=== PATIENT | male | born 1940 | race Caucasian/White ===

== ENCOUNTER 2022-04-15 14:58 | Outpatient (CLI) | payer MEDICARE, BC | END 2022-04-15 14:59 | disposition critical access hospital (66) | LOC: EMS 14:58 | DX: R41.0 Disorientation, unspecified (principal); M79.622 Pain in left upper arm; I48.91 Unspecified atrial fibrillation | CPT/HCPCS: A0425; A0427 ==

== ENCOUNTER 2022-04-15 15:29 | Emergency (ER) | payer MEDICARE, BC ==
[2022-04-15] MEDS ORDERED: diltiaZEM 30 MG TABLET PO STA ×2 (16:16→18:00)
--- NOTE | 2022-04-15 16:17 | ED Physician Documentation ---
PD HPI ALTERED MENTAL STATUS - Stated complaint Stated Complaint: AMS - Chief complaint Chief Complaint: Neuro - History obtained from History obtained from: Patient, Family ( gives independent information separate from the patient - she noted him to have confusion and unable to remember recent events of today/yesterday. He was having pain left shoulder, worse with movement. She had not heard him fall or such.), EMS (EMS noted the patient to have a rapid heart rate with apparent atrial fibrillation with heart rate approximately 170s. He did appear pale. There oximetry read 78% with poor tracing however. He was conversant but seemed confused and poor memory of recent events.) - History of Present Illness Timing - onset: Today Timing - duration: Hours (The patient states he is usually typically very active and vigorous. He swims a mile 3 times a week. Does usual activity around the house. He states he does not remember events from this afternoon. He denies any focal weakness. He has pain in the left shoulder and is not aware of injury.) Timing - details: Abrupt onset ( The patient is not aware of exactly when his symptoms started. He was off doing activities on his own at home. His noted that he seemed confused and pale. He did not have memory of the events from earlier today. Last normal approximately 2:00. Having pain in the left shoulder.) Quality / character: Disoriented (The patient was actually able to state his name and where he was. He was not sure of the time of day. He cannot remember events from earlier in the day or what he had been doing. His states he was able to make complete sentences and his articulation was clear. No focal weakness noted.) Associated symptoms: Other (He is having pain in the left shoulder with motion so therefore is guarding motion of the left shoulder. He has normal motion and strength in the forearm and wrist.). No: Fever, Headache, Stiff neck, Focal weakness Contributing factors: No: Anticoagulated, Diabetic, Recent med change, Recent illness, Known dementia Basline status: Alert and oriented X 3, Ambulatory (He and his state he is typically vigorous and active. He works out with swimming a mile 3 times a week. Normal household activities.) Similar symptoms before: Has not had sx before PD PAST MEDICAL HISTORY - Past Surgical History Past Surgical History: No - Present Medications Home Medications: Ambulatory Orders Medication Instructions Recorded Confirmed Atorvastatin [Lipitor] 20 mg PO QPM 04/15/22 04/15/22 Levothyroxine Sodium 200 mcg PO DAILY PM 04/15/22 04/15/22 [Levothyroxine] - Allergies Allergies/Adverse Reactions: Allergies Allergy/AdvReac Type Severity Reaction Status Date / Time No Known Drug Allergies Allergy Verified 10/05/13 18:37 - Social History Does the pt smoke?: No Smoking Status: Never smoker Does the pt drink ETOH?: Yes Does the pt have substance abuse?: No - Immunizations Immunizations are current?: No Immunizations: TDAP >10years/unknown PD ED PE NORMAL - Vitals Vital signs reviewed: Yes - General General: Alert and oriented X 3, Well developed/nourished, Other (He does seem appropriately concerned that he cannot remember events from earlier in the day. Remote memory is good. He denies headache. He is alert and conversant. Pupils are slightly constricted bilaterally.) - HEENT HEENT: Atraumatic - Neck Neck: Supple, no meningeal sign, No bony TTP, No adenopathy - Cardiac Cardiac: No: RRR (Irregular rhythm with a controlled rate between 95 and 100. No murmur.) - Respiratory Respiratory: No respiratory distress, Clear bilaterally, Other (Mild chest wall tenderness in the left lower costal margin without any crepitance or deformity. Lungs are clear to auscultation.) - Abdomen Abdomen: Normal bowel sounds, Soft, Non tender - Back Back: No CVA TTP, No spinal TTP - Derm Derm: Normal color, Warm and dry - Extremities Extremities: Other (He has tenderness in the left anterolateral shoulder and pain with active range of motion so guarding motion. Passive range of motion actually is minimally painful. No obvious dislocation. The elbow and wrist are nontender. Strong activity aid in the hand. Good elbow motion for flexion extension.) - Neuro Neuro: Alert and oriented X 3, search engine optimization analyst 2-12 intact, No motor deficit, No sensory deficit, Normal speech, Other (The patient has poor memory of events from earlier today and this morning. He can remember from yesterday and earlier in the week. Sentence structure is good and articulation is normal.) Eye Opening: Spontaneous Motor: Obeys Commands Verbal: Oriented GCS Score: 15 NIHSS - Level of Consciousness Level of consciousness: (0) Alert, Keenly responsive LOC Questions: (0) Answers both Q's correct LOC Commands: (0) Performs both correctly - Gaze Best Gaze: (0) Normal - Visual Visual: (0) No loss - Facial Palsy Facial Palsy: (0) Normal, symmetrical movement - Motor Arms (both separate) Motor Arm (right): (0) No drift Motor Arm (left): (0) No drift - Motor Legs (both separate) Motor Leg (right): (0) No drift Motor Leg (left): (0) No drift - Limb Ataxia Limb Ataxia: (0) Absent - Sensory Sensory: (0) Normal - Best Language Best Language: (0) No aphasia - Dysarthria Dysarthria: (0) Normal - Extinction and Inattention (formally neg Extinction and inattention: (0) No abnormality - Total Score/Results Total Score/Result: 0 Results - Vitals Vitals: Vital Signs - 24 hr 04/15/22 04/15/22 15:37 17:23 Temperature 37.0 C Heart Rate 97 98 Respiratory 14 24 Rate Blood Pressure 163/96 H 153/90 H O2 Saturation 92 100 Oxygen O2 Source Room air - EKG (time done) 16:19 Rate: Rate (enter#) (90) Rhythm: Atrial fibrillation [place]: Normal QRS: Normal Ischemia: Normal ST segments. No: ST elevation c/w ischemia, ST depression - Labs Labs: Laboratory Tests 04/15/22 04/15/22 04/15/22 16:19 16:19 16:19 WBC 12.9 H RBC 4.59 L Hgb 13.0 L Hct 41.2 L MCV 89.8 MCH 28.3 MCHC 31.6 L RDW 13.3 Plt Count 175 MPV 9.4 Neut # (Auto) 11.2 H Lymph # (Auto) 0.9 L [place] # (Auto) 0.7 Eos # (Auto) 0.0 Baso # (Auto) 0.0 Absolute Nucleated RBC 0.00 Nucleated RBC % 0.0 ESR 6 Sodium 137 Potassium 3.7 Chloride 105 Carbon Dioxide 22 Anion Gap 10.0 BUN 14 Creatinine 0.9 Estimated GFR (MDRD) 81 L Glucose 115 H Calcium 8.8 Magnesium 2.3 Total Bilirubin 1.0 AST 26 ALT 29 Alkaline Phosphatase 74 Troponin I High Sens B-Natriuretic Peptide Total Protein 7.0 Albumin 3.9 Globulin 3.1 Albumin/Globulin Ratio 1.3 Lipase 42 TSH 02/05/23 02/05/23 02/05/23 16:19 16:19 16:19 WBC RBC Hgb Hct MCV MCH MCHC RDW Plt Count MPV Neut # (Auto) Lymph # (Auto) [place] # (Auto) Eos # (Auto) Baso # (Auto) Absolute Nucleated RBC Nucleated RBC % ESR Sodium Potassium Chloride Carbon Dioxide Anion Gap BUN Creatinine Estimated GFR (MDRD) Glucose Calcium Magnesium Total Bilirubin AST ALT Alkaline Phosphatase Troponin I High Sens 29.7 H* B-Natriuretic Peptide 40 Total Protein Albumin Globulin Albumin/Globulin Ratio Lipase TSH 0.53 - Rads (name of study) shoulder xray Radiology: Prelim report reviewed, EMP read indepedently (no fractures nor dislocations), See rad report chest xray Radiology: Prelim report reviewed, EMP read indepedently (no acute process nor noted rib fractures. ), See rad report angio head/neck Radiology: Prelim report reviewed (No LVO, no bleed, mass, nor acute findings. ), See rad report PD Medical Decision Making - ED course Complexity details: considered differential (The patient was in apparent new onset A. fib with rapid response of heart rate 170s per EMS. He was pale and had low oximetry with poor tracing. He was given diltiazem with slowing of the heart rate and his color improved. He still had poor memory of recent events. Pain in the left shoulder.), d/w patient, d/w family Procedural Risk Factors Specific to Patient: He was given IV diltiazem prehospital and we are watching his heart rate and blood pressure. He was given an oral dose as well. Subsequently after CT he is back and is heart rate is creeping up now to approximately 100-1 15. We can give a repeat dose of diltiazem IV and increased oral dose. At this point he is not completely rate controlled. Reassessment of his neurologic is he is having much improvement in his memory of events from earlier in the day. There is still a blank. For a couple of hours wheeze not sure what he was doing. He did remember being out in the garden and in the garage. He does not remember a fall or injury though. Still unclear whether he has TGA with the amnesia versus potential fall and concussion as he does have pain in the shoulder as well. At this point it seems reasonable that he needs to be still evaluated for appropriate rate control of his new onset A. fib. His memory seems to be improving. Consideration for potential MRI of the brain as a appropriate test for TGA according to up-to-date reference. ED course: The patient has a interesting combination of presenting symptoms. He has apparent new onset atrial fibrillation with rapid ventricular response that has slowed with diltiazem by EMS but is still fibrillation approximately 90-100. Blood pressure is slightly elevated if anything. Oxygenation is 97% on room air here. He denied any chest pain. He has not had any recent exertional dyspnea nor chest tightness. He also has onset of left shoulder pain with range of motion. There is no obvious deformity and passive range of motion is not hurting as much. No pain in the elbow or wrist. Consideration would be for a possible fall that he was not remembering. We will get an x-ray of that. He does have no memory of the last couple of hours and also some events from earlier today. No focal deficits and his states sentences were complete and articulation clear just the memory was off. He does not have any headache or head tenderness. Consideration would be also a fall with concussive symptoms. Other consideration would be transient global amnesia. We will get CT scans and angios of the head and neck to evaluate for potential stroke or bleeding nor injury. At this point he is kept on the heart monitor. His heart rate seems controlled at this point but I will assume the IV diltiazem given will wear off soon so we will give an oral dose as well. We will watch him on the monitor for rate control and also blood pressure monitoring. Will evaluate for neurologic problems with CT and angios. Also blood test to evaluate for sodium and blood sugar and sed rate. Will get x-ray of the shoulder to look for injury. We can give him some Tylenol or medicine for pain. We will give him a sling as well. Departure - Departure Clinical Impression: Global amnesia, Left shoulder strain, New onset atrial fibrillation, Atrial fibrillation with rapid ventricular response, Memory loss of unknown cause Condition: Stable Record reviewed to determine appropriate education?: Yes
[2022-04-15] MEDS ORDERED: iohexoL-300 100 ML VIAL ONE (16:18)
[2022-04-15 16:25] LABS: BASOPHILS % (AUTO) 0.2 %; EOSINOPHILS % (AUTO) 0.2 %; HCT - HEMATOCRIT 41.2 % (42.0-52.0); LYMPHOCYTES # (AUTO) 0.9 10^3/uL (1.5-3.5); LYMPHOCYTES % (AUTO) 6.9 %; MEAN CORPUSCULAR HEMOGLOBIN 28.3 pg (27.0-31.0); MEAN CORPUSCULAR HGB CONC 31.6 g/dL (32.0-36.0); MEAN CORPUSCULAR VOLUME 89.8 fL (80.0-94.0); MEAN PLATELET VOLUME 9.4 fL (7.4-11.4); MONOCYTES # (AUTO) 0.7 10^3/uL (0.0-1.0); MONOCYTES % (AUTO) 5.4 %; NEUTROPHILS # (AUTO) 11.2 10^3/uL (1.5-6.6); NEUTROPHILS % (AUTO) 86.5 %; PLT - PLATELET COUNT 175 10^3/uL (130-450); RED BLOOD COUNT 4.59 10^6/uL (4.70-6.10); RED CELL DISTRIBUTION WIDTH 13.3 % (12.0-15.0); WHITE BLOOD COUNT 12.9 x10^3/uL (4.8-10.8)
[2022-04-15 16:45] LABS: ALBUMIN 3.9 g/dL (3.2-5.5); ALBUMIN/GLOBULIN RATIO 1.3 (1.0-2.2); CALCIUM 8.8 mg/dL (8.5-10.3); CREATININE 0.9 mg/dL (0.6-1.2); MAGNESIUM 2.3 mg/dL (1.7-2.8); POTASSIUM 3.7 mmol/L (3.5-5.0)
--- NOTE | 2022-04-15 16:47 | XRAY Report ---
PROCEDURE: Chest 1 View X-Ray INDICATIONS: chest pain TECHNIQUE: One view of the chest was acquired. COMPARISON: None. FINDINGS: Surgical changes and devices: None. Lungs and pleura: Hyperinflation and chronic interstitial changes without focal infiltrate Mediastinum: Mediastinal contours appear normal. Heart size is normal. Bones and chest wall: No suspicious bony lesions. Overlying soft tissues appear unremarkable. IMPRESSION: Hyperinflation and chronic interstitial changes Reviewed by: Kenterll Thorpe MD on 04/15/2022 3:46 PM [place] Approved by: Kentrell Thorpe MD on 04/15/2022 3:46 PM AKST Station ID: [id number]
[2022-04-15] MEDS ORDERED: KETOROLAC 15 MG/ML VIAL IVP STA (17:08)
[2022-04-15] MEDS ORDERED: iohexoL-300 100 ML VIAL IVP ONE (17:16)
--- NOTE | 2022-04-15 17:26 | XRAY Report ---
PROCEDURE: Humerus LT INDICATIONS: left shoulder pain today TECHNIQUE: 2 views of the humerus were acquired. COMPARISON: None FINDINGS: Bones: No fractures or dislocations. No suspicious bony lesions. Soft tissues: No suspicious soft tissue calcifications. IMPRESSION: Unremarkable left humerus radiographs Reviewed by: Kentrell Thorpe MD on 04/15/2022 4:24 PM [facility] Approved by: Kentrell Thorpe MD on 04/15/2022 4:24 PM [facility] Station ID: [id number]
--- NOTE | 2022-04-15 17:38 | CT Report ---
PROCEDURE: CT angiogram head with contrast, CT brain without contrast INDICATIONS: 81-year-old male with memory loss, left facial droop, altered mental status CONTRAST: 80ml omni 300 TECHNIQUE: Precontrast 4.5 mm thick angled axial sections acquired from the foramen magnum to the vertex. Afte r the administration of intravenous contrast, 1 mm thick sections acquired through the [place] of [place] is. Postcontrast 4.5 mm thick sections then re-acquired from the foramen magnum to the vertex. maxi mfz-vaqzcydsb-xtopdskaqh (MIP) and/or volume rendering reformats were acquired of the central intracr anial vasculature. For radiation dose reduction, the following was used: automated exposure control , adjustment of mA and/or kV according to patient size. COMPARISON: None FINDINGS: Image quality: Excellent. Anterior circulation: Intracranial internal carotid arteries are normal in size and flow. The flow within the paired anterior cerebral arteries is normal and symmetric. The flow within the middle cer ebral arteries is normal and symmetric. The anterior communicating artery is seen. No aneurysms are seen. Posterior circulation: Intracranial vascular calcification noted in the intradural segments of both v ertebral arteries results in mild stenosis without occlusion. Basilar artery unremarkable. Flow withi n the posterior cerebral arteries is normal and symmetric. No aneurysms are seen. CSF spaces: Ventricles are normal in size and shape. Basal cisterns are patent. No extra-axial flu id collections. Brain: No midline shift. No intracranial bleeds or masses. [place]-white matter interface appears int act. Mild atrophy and chronic ischemic change Skull and face: Calvarium and facial bones appear intact, without suspicious lesions. Sinuses: Visualized sinuses and mastoids are clear. 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 Atherosclerotic vascular calcification without hemodynamically significant stenosis Mild atrophy and chronic ischemic change without hemorrhage Reviewed by: Kentrell Thorpe MD on 04/15/2022 4:36 PM [place] Approved by: Kentrell Thorpe MD on 04/15/2022 4:36 PM [facility] Station ID: [id number]
--- NOTE | 2022-04-15 17:41 | CT Report ---
PROCEDURE: CT angiogram neck with contrast INDICATIONS: acute memory loss this afternoon CONTRAST: 80ml omni 300 TECHNIQUE: After the administration of intravenous contrast, 1.5 mm axial sections acquired from the aortic arch to the [place] of [place]. maximum intensity projection (MIP) were then performed. For radiation dos e reduction, the following was used: automated exposure control, adjustment of mA and/or kV accordin g to patient size. COMPARISON: None. FINDINGS: Image quality: Excellent. Carotid system: The great vessels demonstrate a conventional anatomy as they arise from the aortic a rc. The origins of the common carotid arteries appear patent. The common carotid arteries demonstr ate normal calibers and courses. The bifurcation regions appear normal bilaterally. The internal ca rotid arteries demonstrate normal caliber and course. Posterior circulation: There is decreased perfusion of the right extraforaminal vertebral artery with probable retrograde perfusion of the V3 and intradural vertebral arteries. Left vertebral artery unr emarkable. The more superior portions of the vertebral arteries demonstrate normal course and caliber . They join to form a normal appearing basilar artery. Soft tissues: Visualized neck soft tissues demonstrate no suspicious abnormalities. The thyroid is normal in size and there are no incidental findings. Bones: No suspicious bony lesions. Visualized cervical spine appears normally aligned. IMPRESSION: 1. 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 Proximal ICA bilaterally widely patent. The estimate of stenosis included in the report of the imaging study was calculated using the NASCET method Reviewed by: Kentrell Thorpe MD on 04/15/2022 4:40 PM [facility] Approved by: Kentrell Thorpe MD on 04/15/2022 4:40 PM [facility] Station ID: [id number]
[2022-04-15] MEDS ORDERED: diltiaZEM INJ 5 MG/ML VIAL IVP STA (17:59)
[2022-04-15] MEDS ORDERED: ASPIRIN CHEW 81 MG TABLET PO STA (18:19)
--- NOTE | 2022-04-15 18:41 | ED Physician Documentation ---
ED Addendum - Addendum Addendum: 04/15/22 18:[address] Temple at 6 PM shift change. Briefly this is an 81-year-old gentleman who was last seen normal by his at noon and then at 2 PM had severe memory finding difficulties. Now he is back to normal. CT angiography of the head and neck were notable for a vertebral occlusion. Case was discussed by phone with Dr. Torres, telestroke neurologist at 6:16 PM who felt this was chronic finding. Recommended MRI in the morning.
[2022-04-15] MEDS: CLOPIDOGREL 75 MG TABLET PO SCH (19:28)
[2022-04-15] MEDS: ACETAMINOPHEN 325 MG TABLET PO PRN (19:28)
[2022-04-15] MEDS ORDERED: LEVOTHYROXINE 100 MCG TABLET PO SCH (21:00)
[2022-04-15] MEDS ORDERED: ATORVASTATIN 10 MG TABLET PO SCH (21:00)
--- NOTE | 2022-04-15 22:59 | CT Report ---
PROCEDURE: CHEST WO INDICATIONS: L rib inj TECHNIQUE: Noncontrast 1mm axial images were acquired from the pulmonary apices to the posterior costophrenic an gles. Axial 5 mm soft tissue kernel reconstructions were performed as well as 8 mm axial MIP and cor onal and sagittal 5 mm reformations. For radiation dose reduction, the following was used: automate d exposure control, adjustment of mA and/or kV according to patient size. COMPARISON: Chest x-ray 04/15/2022 FINDINGS: Image quality: There is mild motion artifact. Lower Neck: No lymphadenopathy by size criteria. Thyroid: Visualized thyroid demonstrates no discrete nodules. Axillae: No lymphadenopathy by size criteria. Chest Wall: Unremarkable. Bones: There is a nondisplaced fracture of the left 11th rib laterally. Visualized osseous structures demonstrate no suspicious lesions. Lungs and Airways: No acute consolidation. No pulmonary contusions or lacerations. There is mild dep endent atelectasis. The trachea and central airways are patent. Pleura: No pneumothorax or pleural effusions. Heart: Heart size is normal. No pericardial effusion. Thoracic Vessels: The aorta and pulmonary arteries are normal in size. Mediastinum and [place]: No lymphadenopathy by size criteria. Esophagus: No wall thickening. No hiatal hernia. Abdomen: Visualized upper abdomen demonstrates a few small hypodense foci within the liver which are too small to characterize but likely represent cysts. A few scattered punctate calcifications also n oted suggestive of old granulomatous disease. There is high density in the renal collecting system li jocelyne representing residual excreted contrast from recent CT angiogram. IMPRESSION: 1. Nondisplaced fracture of the left 11th rib laterally. 2. No pulmonary contusions or lacerations. No pneumothorax. Reviewed by: Cabrera Tadeo MD on 04/15/2022 10:57 PM PST Approved by: Cabrera Tadeo MD on 04/15/2022 10:57 PM PST Station ID: [id number]
--- NOTE | 2022-04-16 02:20 | ED Physician Documentation ---
ED Addendum - Addendum Addendum: 04/16/22 02:19 The patient was signed out to me at change of shift, pending CT scan of the chest. This was done and reviewed by me as well as the radiologist, and showed 1/11 rib fracture on the left. The patient did not have a pneumothorax or hemothorax. He has been stable all night and without further complaints. The patient will be signed out to the oncoming emergency physician, at change of shift, pending final disposition.
[2022-04-16] MEDS: ACETAMINOPHEN 325 MG TABLET PO PRN (02:26)
[2022-04-16 07:19] LABS: CALCIUM 8.9 mg/dL (8.5-10.3); CREATININE 0.8 mg/dL (0.6-1.2)
[2022-04-16] MEDS: diltiaZEM CD 120 MG CAPSULE PO SCH ×2 (08:21→09:20)
[2022-04-16] MEDS: CLOPIDOGREL 75 MG TABLET PO SCH (08:22)
--- NOTE | 2022-04-16 12:05 | MRI Report ---
PROCEDURE: BRAIN WO INDICATIONS: acute amnestic period TECHNIQUE: Noncontrast axial T1 spin echo, axial T2 fast spin echo, sagittal and axial FLAIR, coronal T2 fast sp in echo, axial gradient echo, axial diffusion and ADC through the brain. COMPARISON: CTA head and neck dated 04/15/2022. FINDINGS: Image quality: Excellent. CSF Spaces: Basal cisterns are patent. No extra-axial fluid collections. Ventricles are normal in size and shape. Brain: No intracranial masses or hemorrhage. [place]/white matter interface is normal. Brainstem appe ars normal. Diffusion-weighted images demonstrate no acute ischemic insult. No chronic ischemic ins ults. Normal intravascular flow voids are present. Age-appropriate volume loss. Very mild small ves eli ischemic change. Skull and face: Calvarium has normal marrow signal. Orbits appear normal. Sinuses: Sinuses and mastoids are clear. IMPRESSION: Age-appropriate volume loss and very mild small vessel ischemic change. No evidence of acute intracra nial process. Reviewed by: Andrew Sams MD on 04/16/2022 12:04 PM PST Approved by: Andrew Sams MD on 04/16/2022 12:04 PM PST Station ID: [id number]
--- NOTE | 2022-04-16 12:55 | ED Physician Documentation ---
ED Addendum - Addendum Addendum: 04/16/22 12:51 The patient is doing well this morning. His EKG shows he is reverted to sinus rhythm overnight. His overnight heart rate him blood pressure have been normal. Unclear what point he actually converted to sinus. He was on oral diltiazem and I would presume wanting to keep him on a low-dose oral diltiazem till follow-up with his primary care regarding the new onset atrial fibrillation. He had an MRI brain this morning which did not show any acute abnormalities just age-related changes. No signs of MS, stroke, bleed etc. He had a CT of his chest to supplement the chest x-ray done previously. It did identify a nondisplaced rib fracture. He is having better movement of his shoulder with minimal pain. I do not feel he needs a sling at this time. The patient asked about activity. He typically swims 3 times a week. I would suggest he not do this for the next week as well as avoid any ladders or driving or such since she apparently had a likely fainting episode with the atrial fibrillation. At this point he had been in atrial fibrillation rapidly by EMS. Its been rate controlled and now converted with just diltiazem. He feels well. I presume this had caused a syncopal episode with falling and injury to the shoulder sprain as well as the rib fracture. He does not feel he needs stronger pain medicines for this. The memory loss most likely represents a concussive episode related to the fall. However cannot exclude an episode of transient global amnesia. No signs of stroke or MS or other more significant cause. We will discharge the patient at this time on diltiazem and aspirin and have him follow-up with his primary care. Disposition: The patient discharged home in stable condition. Diagnoses: 1. New onset atrial fibrillation with rapid ventricular response, improved 2. Syncopal episode with fall. 3. Left lower rib fracture nondisplaced 4. Left shoulder sprain 5. Transient memory loss, either mild concussion versus transient global amnesia
[2022-04-16 13:16] VITALS: BP 120/72
[2022-04-16] MEDS ORDERED: ATORVASTATIN 40 MG TABLET PO SCH (21:00)
== END 2022-04-16 13:16 | disposition home or self-care (01) ==
LOC: EDUNIT# → ED 15:29
DX: I48.91 Unspecified atrial fibrillation (principal); G45.4 Transient global amnesia; S46.812A Strain of other muscles, fascia and tendons at shoulder and upper arm level, left arm, initial encounter; S22.32XA Fracture of one rib, left side, initial encounter for closed fracture; W18.30XA Fall on same level, unspecified, initial encounter; Z20.822 Contact with and (suspected) exposure to COVID-19; R07.81 Pleurodynia
CPT/HCPCS: 36415; 70496; 70498; 70551; 71045; 71250; 73060; 80048; 80053; 83690; 83735; 83880; 84443; 84484; 85025; 85651; 87635; 93005; 99283; 99284; A9270; Q9967

== ENCOUNTER 2022-06-07 12:18 | Outpatient (CLI) | payer MEDICARE, BC | END 2022-06-07 12:19 | disposition home or self-care (01) | LOC: DI 12:18 | PROVIDERS: ATTEND Internal Medicine Cardiovascular Disease | DX: I48.91 Unspecified atrial fibrillation (principal); I51.7 Cardiomegaly; I35.1 Nonrheumatic aortic (valve) insufficiency | CPT/HCPCS: 93306 ==